=== PATIENT | male | born 1970 | race Caucasian/White ===

== ENCOUNTER 2016-09-26 13:28 | Emergency (ER) | payer OTHER ==
[~2016-09-26] VITALS: Ht 175.3 cm; Wt 78.5 kg
[2016-09-26 13:36] VITALS: BP 128/71
[2016-09-26] MEDS ORDERED: IBUPROFEN400 MG ORAL (13:57)
[2016-09-26 14:09] VITALS: BP 94/66
--- NOTE | 2016-09-26 16:53 | Emergency Room Report ---
History of Present Illness General Chief Complaint: Head Injury Source: Patient Present Illness HPI The patient is a 46-year-old male presenting for right sided head pain after he states a metal object fell onto the head yesterday at work. The patient states that a metal first aid kit fell from a height of approximately 6 feet onto the right side of his head. The patient denies falling down or loss of consciousness. The patient states he is expressing a 2/10 dull ache to the area and does not radiate. The has not tried anything for pain. Pain is worse with touch. The patient denies any other symptoms including N, V, F, chills, dizziness, blurred vision, neck pain/stiffness, fatigue Allergies: Coded Allergies: No Known Allergies (Unverified , 09/26/16) Patient History Past Medical History: see triage record Pertinent Family History: none Reviewed Nursing Documentation: PMH: Agreed, PSxH: Agreed Nursing Documentation-PM Past Medical History: No Stated History Review of Systems All Other Systems: negative except mentioned in HPI Physical Exam Vital Signs Date Time Temp Pulse Resp B/P Pulse Ox O2 Delivery O2 Flow Rate FiO2 09/26/16 13:36 98.2 70 16 128/71 99 Room Air Sp02 EP Interpretation: reviewed, normal General Appearance: normal inspection, well appearing, no apparent distress, alert, GCS 15, non-toxic Head: normocephalic, atraumatic, other - TTP over the R scalp over the mid parietal region Eyes: bilateral eye PERRL, bilateral eye normal inspection ENT: hearing grossly normal, normal pharynx, no angioedema, normal voice Neck: full range of motion, supple/symm/no masses Respiratory: chest non-tender, lungs clear, normal breath sounds, speaking full sentences Musculoskeletal: back normal, gait/station normal, normal range of motion, non- tender Neurologic: alert, oriented x3, responsive, motor strength/tone normal, sensory intact, speech normal Psychiatric: normal inspection, judgement/insight normal, memory normal, mood/ affect normal, no suicidal/homicidal ideation Reflexes: 3+ bicep (R), 3+ bicep (L), 3+ tricep (R), 3+ tricep (L), 3+ knee (R) , 3+ knee (L) Skin: normal color, no rash, warm/dry, well hydrated Lymphatic: no adenopathy Medical Decision Making PA Attestation Dr. Cagle is my supervising physician. Patient management was discussed with my supervising physician Diagnostic Impression: Primary Impression: Scalp contusion ER Course The patient is a 46-year-old male presenting for right sided head pain Differential diagnoses considered but not limited to: Scalp contusion, fracture , concussion, migraine Physical exam: Vitals are within normal limits. No apparent distress HEENT: PERRL Head NC/AT. TTP over the R scalp over the mid parietal region. No crepitus. No edema. No ecchymosis. Neck is nontender. Full active range of motion The patient is discharged home with a prescription for Motrin and will followup with PMD and workers compensation. ER precautions are given. Patient will return if he experiences any symptoms including nausea, vomiting, dizziness, RICHTER, blurred vision Last Vital Signs Date Time Temp Pulse Resp B/P Pulse Ox O2 Delivery O2 Flow Rate FiO2 09/26/16 14:09 71 18 94/66 98 Room Air 09/26/16 13:36 98.2 Status: improved Disposition: HOME, SELF-CARE Condition: Improved Scripts Ibuprofen* (MOTRIN*) 400 Mg Tablet 400 MG ORAL Q6H, #30 TAB 0 Refills Prov: AMPARO RIVER 09/26/16 Referrals: NOT CHOSEN [facility]/MD,REFERRING (PCP) Patient Instructions: Facial or Scalp Contusion Additional Instructions: I discussed my findings with the patient. All questions and concerns have been answered. Treatment and medication compliance have been addressed. I advised the patient that they need to follow up with PMD in 3-5 days. Return to ED if symptoms worsen, new symptoms arise, or if needed for any reason. Patient verbalized understanding of discharge instructions. Please return to ER if you experience any new symptoms such as nausea, vomiting , headache, blurred vision, dizziness. AMPARO RIVER Sep 26, 2016 16:53
== END 2016-09-26 14:09 | disposition home or self-care (01) ==
LOC: EMR 14:05
DX: S00.03XA Contusion of scalp, initial encounter (principal); W20.8XXA Other cause of strike by thrown, projected or falling object, initial encounter; Y92.9 Unspecified place or not applicable
CPT/HCPCS: 99283